=== PATIENT | female | born 1950 | race Caucasian/White ===

== ENCOUNTER 2018-11-17 07:14 | Day surgery (SDC) | payer OTHER ==
[2018-11-17 08:37] VITALS: TEMP 99
[2018-11-17 08:39] LABS: CALCIUM 9.2 mg/dL (8.5-10.1); CHLORIDE 106 mmol/L (98-107); POTASSIUM 3.8 mmol/L (3.5-5.1); SODIUM 143 mmol/L (136-145)
[2018-11-17 08:40] LABS: ALBUMIN 3.8 g/dl (3.4-5.0); ANION GAP 8 MMOL/L (8-16); BLOOD UREA NITROGEN 15.2 mg/dL (7-18); CO2 29 mmol/L (21-32); GLUCOSE,RANDOM 98 mg/dL (74-106)
[2018-11-17 08:46] LABS: ALK PHOS 80 U/L (45-117); BILIRUBIN,TOTAL 0.2 mg/dL (0.2-1); CREATININE 0.7 mg/dL (0.55-1.3); SGOT/AST 18 U/L (15-37); SGPT/ALT 21 U/L (13-61); TOT PROT 7.3 g/dl (6.4-8.2)
[2018-11-17] MEDS ORDERED: ZOLEDRONIC ACID/MAN/WATER 5 MG/100 ML INFUS..BTL IVPB ONE (09:00)
[2018-11-17 09:39] VITALS: BP 158/84; PULSE 76
== END 2018-11-17 09:43 | disposition home or self-care (01) ==
LOC: JINFUSION 07:14 → JCHEMO 07:14 → JINFUSION 09:43
PROVIDERS: ATTEND Internal Medicine Endocrinology, Diabetes & Metabolism
PROC: 3E033GC Introduction of Other Therapeutic Substance into Peripheral Vein, Percutaneous Approach (ICD-10-PCS; principal; 2018-11-17)
DX: M81.0 Age-related osteoporosis without current pathological fracture (principal)
CPT/HCPCS: 36415; 80053; 96365; J3489